=== PATIENT | female | born 1990 | race Two or more races ===

== ENCOUNTER 2019-01-06 14:36 | Emergency (ER) | payer SELFPAY ==
--- NOTE | 2019-01-06 15:14 | EDM.PDOC ---
ED HPI GENERAL MEDICAL PROBLEM - General Chief Complaint: ENT Problem Stated Complaint: SORE THROAT Time Seen by Provider: 01/06/19 14:41 Source of Information: Reports: Patient History Limitations: Reports: No Limitations - History of Present Illness INITIAL COMMENTS - FREE TEXT/NARRATIVE: HISTORY AND PHYSICAL: History of present illness: Patient is a 28-year-old female who presents to the emergency room with complaints of sore throat and dry cough 3 days. She denies any fever, chills, chest pain, shortness of breath. Denies any abdominal pain, nausea, vomiting, diarrhea or constipation. Denies any chance of . She has been eating and drinking appropriately. She has been using Tylenol, ibuprofen and over-the- counter cough and cold medications without relief. Review of systems: As per history of present illness and below otherwise all systems reviewed and negative. Past medical history: As per history of present illness and as reviewed below otherwise noncontributory. Surgical history: As per history of present illness and as reviewed below otherwise noncontributory. Social history: See social history for further information Family history: As per history of present illness and as reviewed below otherwise noncontributory. Physical exam: General: Well developed and well-nourished 28-year-old female. Alert and oriented. Nontoxic appearing and in no acute distress. HEENT: Atraumatic, normocephalic, pupils equal and reactive bilaterally, negative for conjunctival pallor or scleral icterus, mucous membranes moist, TMs normal bilaterally, erythema to the posterior oropharynx with scattered exudate, neck supple, nontender, trachea midline. No drooling or trismus noted. No meningeal signs. No hot potato voice noted. Lungs: Clear to auscultation, breath sounds equal bilaterally, chest nontender. Heart: S1S2, regular rate and rhythm without overt murmur Abdomen: Soft, nondistended, nontender. Negative for masses or hepatosplenomegaly. Negative for costovertebral tenderness. Pelvis: Stable nontender. Genitourinary: Deferred. Rectal: Deferred. Skin: Intact, warm, dry. No lesions or rashes noted. Extremities: Atraumatic, negative for cords or calf pain. Neurovascular unremarkable. Neuro: Awake, alert, oriented. Cranial nerves II through XII unremarkable. Cerebellum unremarkable. Motor and sensory unremarkable throughout. Exam nonfocal. Notes: [employer] translation services was used, as patient is [place]-speaking. Positive strep screening. Supportive care measures were reviewed and discussed. Voices understanding and is agreeable to plan of care. Denies any further questions or concerns at this time. Diagnostics: Strep screening Therapeutics: None Prescription: Augmentin Phenergan with Codeine Impression: Strep throat Plan: 1. Please take the antibiotic as prescribed. 2. Tylenol and/or ibuprofen as needed for pain and fever management. You may use [id number] lozenges for throat pain relief. Warm saltwater gargle rinses spit 3-4 times daily. Please get a new toothbrush once you have started the antibiotic to avoid re-infection. 3. Please follow-up with your primary care provider and/ or the research attorney in the next 1-2 days. Return to the ED as needed and as discussed. Definitive disposition and diagnosis as appropriate pending reevaluation and review of above. Throat Pain Score (Numeric/FACES): 10 - Related Data Allergies Allergy/AdvReac Type Severity Reaction Status Date / Time No Known Allergies Allergy Verified 01/06/19 14:48 Home Meds: Home Meds . [No Known Home Meds] 01/06/19 [History] Past Medical History - Past Health History Medical/Surgical History: Denies Medical/Surgical History - Infectious Disease History Infectious Disease History: Reports: None Social & Family History - Family History Family Medical History: Noncontributory - Tobacco Use Smoking Status *Q: Never Smoker Second Hand Smoke Exposure: No - Caffeine Use Caffeine Use: Reports: None - Recreational Drug Use Recreational Drug Use: No ED ROS ENT - Review of Systems Review Of Systems: ROS reveals no pertinent complaints other than HPI. ED EXAM, ENT - Physical Exam Exam: See Below (See dictation) Course - Vital Signs Last Recorded V/S: Last Vital Signs Temp 98.2 F 01/06/19 14:48 Pulse 126 H 01/06/19 14:48 Resp 18 01/06/19 14:48 BP 137/81 01/06/19 14:48 Pulse Ox 98 01/06/19 14:48 Departure - Departure Time of Disposition: 15:14 Disposition: Home, Self-Care 01 Clinical Impression: Strep throat - Discharge Information Instructions: Strep Throat, [id number] Referrals: PCP,Unknown [Primary Care Provider] - Forms: ED Department Discharge Additional Instructions: The following information is given to patients seen in the emergency department who are being discharged to home. This information is to outline your options for follow-up care. We provide all patients seen in our emergency department with a follow-up referral. The need for follow-up, as well as the timing and circumstances, are variable depending upon the specifics of your emergency department visit. If you don't have a primary care physician on staff, we will provide you with a referral. We always advise you to contact your personal physician following an emergency department visit to inform them of the circumstance of the visit and for follow-up with them and/or the need for any referrals to a consulting specialist. The emergency department will also refer you to a specialist when appropriate. This referral assures that you have the opportunity for follow-up care with a specialist. All of these measure are taken in an effort to provide you with optimal care, which includes your follow-up. Under all circumstances we always encourage you to contact your private physician who remains a resource for coordinating your care. When calling for follow-up care, please make the office aware that this follow-up is from your recent emergency room visit. If for any reason you are refused follow-up, please contact the [facility] at and asked to speak to the emergency department charge nurse. [facility] [address] [place] [id number] [place] [address] 1. Please take the antibiotic as prescribed. 2. Tylenol and/or ibuprofen as needed for pain and fever management. You may use [id number] lozenges for throat pain relief. Warm saltwater gargle rinses spit 3-4 times daily. Please get a new toothbrush once you have started the antibiotic to avoid re-infection. 3. Please follow-up with your primary care provider and/ or the research attorney in the next 1-2 days. Return to the ED as needed and as discussed.
== END 2019-01-06 15:26 | disposition home or self-care (01) ==
LOC: MW.ED 14:36
DX: J02.0 Streptococcal pharyngitis (principal)
CPT/HCPCS: 87880-QW; 99283